=== PATIENT | male | born 1995 | race Hispanic/Latino ===

== ENCOUNTER 2020-09-18 09:16 | Emergency (ER) | payer SELFPAY ==
[~2020-09-18] VITALS: Ht 172.7 cm; Wt 102.1 kg
[2020-09-18] MEDS ORDERED: ACETAMINOPHEN500 MG PO (09:46)
[2020-09-18] MEDS ORDERED: IBUPROFEN IB200 MG PO (09:46)
[2020-09-18] MEDS ORDERED: CIPRO HC OTIC S10 ML RIGHT EAR (09:46)
[2020-09-18] MEDS ORDERED: AMOXICILLIN500 MG PO (09:46)
== END 2020-09-18 09:50 | disposition home or self-care (01) ==
LOC: FSED 09:40
DX: H60.91 Unspecified otitis externa, right ear (principal); F17.210 Nicotine dependence, cigarettes, uncomplicated
CPT/HCPCS: 99282